=== PATIENT | male | born 1980 | race Caucasian/White ===

== ENCOUNTER 2024-01-16 14:00 | Outpatient (CLI) | payer BC, SELFPAY ==
--- OUTSIDE RECORDS SUMMARY | 2024-01-16 14:05 | XMS_ITS | Clinical Summary ---
Author Organization [facility] Address [place], [place] [address] Care Team Providers Care Bilingual Sales Consultant Name Role Phone Listed, Not Primary Care Provider Unavailabl e Allergies No known active allergies Medications Medication Sig Dispensed Refills Start Date End Date Status HYDROcodone-acetam inophen (NORCO) 5-325 mg per tabletIndications: Accessory navicular bone of right foot Take 1 tablet by mouth every 4 to 6 hours as needed for pain. Maximum of 10 tablets per 24 hours. Max acetaminophen dose: 4000 mg in 24 hours. 30 Tablet 07/22/2021 Active CrutchIndications: Accessory navicular bone of right foot For home use. 2 Each 07/22/2021 Active Active Problems Problem Noted Date Diagnosed Date Bilateral leg pain 08/31/2015 Overview (08/31/2015): August 2015: Saw Dr. Gomes, started on cymbalta, EMG slightly abnormal sensory. Possible neuropathy. Immunizations Name Administration Dates Next Due MMR 07/29/1982 Polio Virus, Unspecified 07/12/1985 Social History Tobacco Use Types Packs/Day Years Used Date Smoking Tobacco: Never Smokeless Tobacco: Never Tobacco Cessation:Counseling Given: Yes Alcohol Use Standard Drinks/Week Comments Yes 0 (1 standard drink = 0.6 oz pur e alcohol) Sex and Gender Information Value Date Recorded Sex Assigned at Not on file Gender Identity Not on file Sexual Orientation Not on file Obstetrics History Last Filed Vital Signs Vital Sign Reading Time Taken Comments Blood Pressure 129/68 07/22/2021 3:45 PM CDT Pulse 71 07/22/2021 3:45 PM CDT Temperature 36.3 ??C (97.4 ??F) 07/22/2021 3:45 PM CD T Respiratory Rate 16 07/22/2021 3:45 PM CDT Oxygen Saturation 98% 07/22/2021 3:45 PM CDT Inhaled Oxygen Concentration - - Weight 105.2 kg (232 lb) 07/22/2021 11:09 AM CDT Height 198.1 cm (6' 6) 07/20/2021 12:07 PM CDT Body Mass Index 26.81 07/20/2021 12:07 PM CDT Plan of Treatment Health Maintenance Due Date Last Done Comments Tdap 07/30/1990 Depression screening for age 12+ 1991 HIV for age 15-65 07/30/1994 Hepatitis C screening for ag e 18-79 07/30/1997 Tetanus booster 1999 Lipids for age 35-44 07/30/2014 BMI (ht and wt on same day) for age 18+ 06/04/2016 06/04/2015 COVID-19 vaccine series ( season) 2023 04/20/2021, 09/04/2020, 08/07/2020 Influenza for age 9-49 12/18/2023 Pneumococcal series for age 6-64 Aged Out No longer eligible b ased on patient's age to complete this topic Medical Devices Implanted Type Area Corporate Controller Device Identifier Shelf Expiration Date Model / Serial / Lot Ancr Sut 3.5x10mm Corkscrew Ftw/Ndl - [id number] Implanted:Qty: 1 on 07/22/2021 by Ned Hilliard DPM at [facility] Right: Ankle [employer] 02/15/2026 AR-[id number] / / [id number] Advance Directives * Full Code (Latest Code Status on File) Date Activated Date Inactivated Comments 07/22/2021 1:06 PM 07/22/2021 6:07 PM Question Answer Comments Code Status Discussion: Reviewed Preferences * Full Code Date Activated Date Inactivated Comments 07/22/2021 10:54 AM 07/22/2021 1:06 PM Question Answer Comments Code Status Discussion: Reviewed Preferences Care Teams Bilingual Sales Consultant Relationship Specialty Start Date End Date Listed, Not Used for Placeholder TONY Longoria [id number] PCP - General 07/18/21
== END 2024-01-16 14:01 | disposition home or self-care (01) ==
PROVIDERS: PCP Family Medicine; Visit Provider Registered Nurse
DX: R20.2 Paresthesia of skin (principal); G62.9 Polyneuropathy, unspecified
CPT/HCPCS: 80053; 86038; 86039; 86140

== ENCOUNTER 2024-01-18 10:42 | Outpatient (CLI) | payer BC, SELFPAY ==
--- OUTSIDE RECORDS SUMMARY | 2024-01-18 10:53 | XMS_ITS | Clinical Summary ---
Author Organization [facility] Address [place], [place] [address] Care Team Providers Care Hvac Controls Technician Name Role Phone Listed, Not Primary Care [...] this topic Medical Devices Implanted Type Area Clinical Rehabilitation Liaison Device Identifier Shelf Expiration Date Model / Serial / Lot Ancr Sut 3.5x10mm Corkscrew Ftw/Ndl - [id number] Implanted:Qty: 1 on 07/22/2021 by Ned Hilliard DPM at [facility] Right: Ankle [employer] 02/15/2026 AR-[id number] / / [id number] Advance Directives * Full Code (Latest Code Status on File) Date Activated Date Inactivated Comments 07/22/2021 1:06 PM 07/22/2021 6:07 PM Question Answer Comments Code Status Discussion: Reviewed Preferences * Full Code Date Activated Date Inactivated Comments 07/22/2021 10:54 AM 07/22/2021 1:06 PM Question Answer Comments Code Status Discussion: Reviewed Preferences Care Teams Hvac Controls Technician Relationship Specialty Start Date End Date Listed, Not Used for Placeholder TONY Longoria [id number] PCP - General 07/18/21
== END 2024-01-18 10:43 | disposition home or self-care (01) ==
PROVIDERS: PCP Family Medicine; Visit Provider Registered Nurse
DX: Z13.88 Encounter for screening for disorder due to exposure to contaminants (principal); G62.9 Polyneuropathy, unspecified; R20.2 Paresthesia of skin; R52 Pain, unspecified
CPT/HCPCS: 82607; 83655; 84443; 86618; 86703